=== PATIENT | male | born 1970 ===

== ENCOUNTER 2025-01-19 05:30 | Day surgery (SDC) | payer OTHER ==
[2025-01-11 14:13] VITALS: BP 144/84
[~2025-01-19] VITALS: Ht 177.8 cm; Wt 98.4 kg
[~2025-01-19 05:30] MED LIST: ARICEPT10 MG PO; BETIMOL5 ML OTIC; CLONAZEPAM0.125 MG PO; HYDRALAZINE HC100 MG PO; LIPITOR80 MG PO; LIPOFEN150 MG PO; PROCARDIA XL90 MG PO; RESTORIL30 MG PO; SERTRALINE HCL50 MG PO; ZESTRIL40 M1 PO
[2025-01-19] MEDS ORDERED: BUPIVACAINE HCL/MPF 0.5% 30ML VIAL ONE (07:12)
[2025-01-19] MEDS ORDERED: POVIDONE-IODINE 118 ML BOTT TOP ONE (07:12)
[2025-01-19] MEDS ORDERED: DIBUCAINE 30 GM TUBE ONE (07:12)
[2025-01-19] MEDS ORDERED: HEMOSTATIC MATRIX 1 KIT KIT TOP ONE (07:12)
[2025-01-19] MEDS ORDERED: LIDOCAINE HCL 1%/EPINEPHRINE 20ML VIAL IJ ONE (07:13)
[2025-01-19] MEDS ORDERED: CEFTRIAXONE SODIUM 2,000 MG VIAL ONE (07:13)
[2025-01-19] MEDS ORDERED: METRONIDAZOLE/SODIUM CHLORIDE 500 MG/100 ML PIGGYBACK IV ONE (07:13)
[2025-01-19] MEDS ORDERED: TAMSULOSIN HCL 0.4 MG CAP PO ONE ×2 (08:45→08:57)
[2025-01-19] MEDS ORDERED: OXYCODONE HCL5 MG PO (08:54)
== END 2025-01-19 11:45 | disposition home or self-care (01) ==
LOC: CIR.AMB 05:30
PROVIDERS: ATTEND Surgery
DX: K64.2 Third degree hemorrhoids (principal); K62.5 Hemorrhage of anus and rectum; K62.89 Other specified diseases of anus and rectum